=== PATIENT | male | born 1970 | race African-American/Black ===

== ENCOUNTER 2017-04-21 16:08 | Emergency (ER) | payer OTHER ==
[2017-04-21] MEDS ORDERED: Bacitracin Zinc 1 Packet ONE (16:27)
== END 2017-04-21 16:39 | disposition home or self-care (01) ==
LOC: BURERS 16:08
DX: S80.12XA Contusion of left lower leg, initial encounter (principal); W01.0XXA Fall on same level from slipping, tripping and stumbling without subsequent striking against object, initial encounter
CPT/HCPCS: 99283